=== PATIENT | male | born 1985 | race Caucasian/White ===

== ENCOUNTER 2018-07-11 17:56 | Emergency (ER) | payer SELFPAY ==
[~2018-07-11] VITALS: Ht 170.2 cm; Wt 95.5 kg
[2018-07-11 18:04] VITALS: BP 118/58; TEMP 97.2
[2018-07-11 19:30] VITALS: PULSE 73
== END 2018-07-11 19:30 | disposition home or self-care (01) ==
LOC: COL.ER 17:56
DX: S80.02XA Contusion of left knee, initial encounter (principal); F17.210 Nicotine dependence, cigarettes, uncomplicated; W22.8XXA Striking against or struck by other objects, initial encounter; Y92.009 Unspecified place in unspecified non-institutional (private) residence as the place of occurrence of the external cause